=== PATIENT | female | born 1980 | race Caucasian/White ===

== ENCOUNTER → 2022-12-07 | Outpatient (CLI) | payer BC, SELFPAY ==
[2022-12-13 15:57] LABS: HPV APTIMA, High Risk Negative (Negative)
== END | disposition home or self-care (01) ==
LOC: LABSPEC 10:01
PROVIDERS: Visit Provider Obstetrics & Gynecology
DX: Z12.4 Encounter for screening for malignant neoplasm of cervix (principal)
CPT/HCPCS: 87624; 88175; G0145

== ENCOUNTER → 2023-02-22 | Outpatient (CLI) | payer BC, SELFPAY ==
--- NOTE | 2023-02-22 12:21 | BI_ITS ---
MAMMOGRAPHY - BILATERAL SCREENING REASON FOR EXAM: Female, 42 years old. Routine annual screening examination. PERTINENT HISTORY: Aunt with breast cancer. TECHNIQUE: Digital bilateral breast andrade (3D mammographic acquisition) in the CC and MLO projections. 2-D mediolateral oblique (MLO) and craniocaudad (CC) views of both breasts were obtained. CAD: Full Field Digital Mammography with Computer Added Detection was performed. COMPARISON: None. Baseline examination. FINDINGS: Breast Composition: The breasts are extremely dense, which lowers the sensitivity of mammography. There are no dominant masses or suspicious calcifications. No other significant abnormalities are identified. BI/SCRN MAMM (CAD)W/ANDRADE BILAT IMPRESSION: Negative screening mammogram. Yearly followup mammogram recommended. (A) ASSESSMENT CATEGORY: BIRADS Category 1: Negative. A letter regarding these results will be sent to the patient by the facility within 30 days. Approximately 10% of breast cancers are not detected by mammography. A normal mammogram should not delay biopsy of a clinically suspicious abnormality. [id number] Electronically Signed: Nino Narayanan MD at 13:46 EDT ,
== END | disposition home or self-care (01) ==
LOC: OPBI 12:19
PROVIDERS: Referring Provider Obstetrics & Gynecology; Visit Provider Obstetrics & Gynecology
DX: Z12.31 Encounter for screening mammogram for malignant neoplasm of breast (principal)
CPT/HCPCS: 77063; 77067

== ENCOUNTER → 2024-09-11 | Outpatient (CLI) | payer BC, SELFPAY ==
--- NOTE | 2024-09-11 10:54 | BI_ITS ---
MAMMOGRAPHY - BILATERAL SCREENING REASON FOR EXAM: Female, 44 years old. Routine annual screening examination. PERTINENT HISTORY: Aunt with breast cancer. TECHNIQUE: Digital bilateral breast andrade (3D mammographic acquisition) in the CC and MLO projections. 2-D mediolateral oblique (MLO) and craniocaudad (CC) views of both breasts were obtained. CAD: Full Field Digital Mammography with Computer Added Detection was performed. COMPARISON: Comparison is made with prior study dated February 22, 2023. FINDINGS: Breast Composition: The breasts are extremely dense, which lowers the sensitivity of mammography. There are no dominant masses or suspicious calcifications. No other significant abnormalities are identified. There has been no significant change since the prior study. BI/SCRN MAMM (CAD)W/ANDRADE BILAT IMPRESSION: Stable bilateral screening mammogram. Yearly follow-up mammogram recommended. (A) ASSESSMENT CATEGORY: BIRADS Category 1: Negative. A letter regarding these results will be sent to the patient by the facility within 30 days. Approximately 10% of breast cancers are not detected by mammography. A normal mammogram should not delay biopsy of a clinically suspicious abnormality. [id number] Electronically Signed: Nino Narayanan MD at 12:12 EST ,
== END | disposition home or self-care (01) ==
LOC: OPBI 10:53
PROVIDERS: PCP Family Medicine; Referring Provider Family Medicine; Visit Provider Family Medicine
DX: Z12.31 Encounter for screening mammogram for malignant neoplasm of breast (principal); Z80.3 Family history of malignant neoplasm of breast

== ENCOUNTER → 2024-10-25 | Outpatient (CLI) | payer BC, SELFPAY ==
[2024-10-29 23:07] LABS: Chlamydia By Nucleic Acid AMP Negative (Negative); Gonococcus By Nucleic Acid AMP Negative (Negative)
[2024-10-31 11:08] LABS: HPV APTIMA, High Risk Negative (Negative)
== END | disposition home or self-care (01) ==
LOC: LABSPEC 14:55
PROVIDERS: PCP Family Medicine; Referring Provider Advanced Practice Midwife; Visit Provider Advanced Practice Midwife
DX: Z12.4 Encounter for screening for malignant neoplasm of cervix (principal); N93.0 Postcoital and contact bleeding
CPT/HCPCS: 87491; 87591; 87624; 88175; G0145

== ENCOUNTER → 2025-02-15 | Outpatient (CLI) | payer OTHER, SELFPAY | END | disposition home or self-care (01) | LOC: LABSPEC 13:37 | PROVIDERS: PCP Family Medicine | DX: N39.0 Urinary tract infection, site not specified (principal) | CPT/HCPCS: 87077; 87086; 87088; 87186 ==

== ENCOUNTER → 2025-05-15 | Outpatient (CLI) | payer OTHER, SELFPAY ==
--- NOTE | 2025-05-15 11:10 | RAD_ITS ---
PROCEDURE: CHEST PA AND LATERAL 05/15/2025 REASON FOR EXAM: BACK PAIN, CHRONIC TECHNIQUE: Procedure Code: RADCXR Modality: DX Procedure: CHEST PA AND LATERAL COMPARISON: None FINDINGS: Hardware: None Heart: The heart size is normal. Mediastinum: The mediastinal contour is unremarkable. Lungs: The lungs are clear. Bones: The bones are unremarkable. RAD/Chest PA and Lateral IMPRESSION: NO ACUTE FINDINGS. Reading Location: [place] [id number]
== END | disposition home or self-care (01) ==
LOC: MTRAD 11:08
PROVIDERS: PCP Family Medicine; Referring Provider Family Medicine; Visit Provider Family Medicine
DX: M54.9 Dorsalgia, unspecified (principal); G89.29 Other chronic pain
CPT/HCPCS: 71046

== ENCOUNTER 2025-05-25 19:41 | Emergency (ER) | payer OTHER, SELFPAY ==
[2025-05-25 19:41] VITALS: BP 112/71; PULSE 87; RESP 16; TEMP 37.1; O2SAT 98; BMI 21.0
--- NOTE | 2025-05-25 20:18 | CT_ITS ---
PROCEDURE: CT ABDOMEN/PELVIS W IV CONT ONLY 05/25/2025 REASON FOR EXAM: ABD PAIN, DIFFUSE TECHNIQUE: Procedure Code: [id number] Modality: CT Procedure: ABDOMEN/PELVIS W IV CONT ONLY Coronal and Sagittal reconstruction series were provided. CONTRAST: Isovue 370 VOLUME: 75 mL One or more dose reduction techniques were used (e.g., Automated exposure control, adjustment of the mA and/or kV according to patient size, use of iterative reconstruction technique. RADIATION DOSE SUMMARY: DLP: 333.8 mGycm COMPARISON: None. FINDINGS: Lung bases: Clear. Liver: Unremarkable. Gallbladder: Unremarkable. No biliary ductal dilatation. Spleen: Unremarkable. Pancreas: Unremarkable. Adrenals: Unremarkable. Kidneys: Symmetric enhancement. No urolithiasis or hydronephrosis. Several bilateral small simple appearing renal cysts. Bladder: Unremarkable. No wall thickening or inflammatory changes. Reproductive Organs: Prominent left ovarian/adnexal cyst measuring 5.8 x 3.7 cm. Bowel: No evidence for bowel obstruction or active inflammatory process. Appendix is not definitively identified but there are no pericecal inflammatory changes. Moderate stool burden throughout the colon. Mildly prominent fluid-filled mid to distal small bowel loops may represent enteritis. Lymph nodes: No suspicious lymph node enlargement. Vasculature: Normal caliber abdominal aorta and IVC. Peritoneum / Retroperitoneum: No ascites or free air. Bones: No significant abnormality. CT/Abdomen/Pelvis W IV Cont ONLY IMPRESSION: 1. Mildly prominent fluid-filled mid to distal small bowel loops, suggesting en teritis. 2. Left ovarian/adnexal simple attenuating cyst measuring 5.8 x 3.7 cm. Reading Location: [id number]
[2025-05-25] MEDS: 0.9% Normal Saline (1000mL) 1,000 ML 999 ML IV (20:51)
[2025-05-25 21:00] LABS: Hematocrit 36.6 % (37-47); Hemoglobin 11.5 g/dL (12.0-15.0); Immature Granulocytes Count 0.030 X10^3/uL (0.0-0.0); Mean Corp Hgb Conc 31.4 g/dL (32-36); Mean Corpuscular Volume 82.2 fL (81-99); Mean Platelet Vol. 9.2 fl (6.2-12.0); NRBC Flagged by Analyzer 0.2 % (0-5); Platelet Count 275 K/mm3 (150-450); RBC Distribution Width CV 14.2 % (11.6-14.6); RBC Distribution Width SD 42.1 fl (35.1-43.9); Red Blood Count 4.45 M/mm3 (4.2-5.4); White Blood Count 10.9 K/mm3 (4.4-11.0)
--- NOTE | 2025-05-25 21:10 | EX.ED.DYSGE1 ---
HPI History of Present Illness Chief Complaint: Abd Pain Narrative Narrative: Patient is a 45-year-old female with who presents to the emergency department chief complaint of abdominal pain. Patient states that she went to work earlier today and notes that she was not feeling well she states that she got to her office and noted that she had abdominal pain. States that this subsided some and she decided to leave her office and continue to work. She states that the abdominal pain returned and noted that this was significant therefore she came here to be further evaluated. Patient denies any recent sick contacts. Patient denies any previous abdominal surgeries. Patient states that she is ending her cycle at this point time. 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 Home Medications ?Medication ?Instructions ?Recorded ?Last Taken ?Type dicyclomine 20 mg tablet 20 mg PO TID PRN abdominal pain 05/25/25 Unknown Rx #20 tabs ondansetron 4 mg disintegrating 4 mg PO Q6H PRN nausea and 05/25/25 Unknown Rx tablet vomiting #20 tabs Allergy/AdvReac Type Severity Reaction Status Date / Time No Known Allergies Allergy Verified 05/25/25 19:42 Family History Mother Lung cancer Father Brain cancer Aunt Breast cancer Diabetes Surgical History H/O cone biopsy of cervix H/O LEEP Social History current occupational status: employed current occupation: [employer] sexually active: Yes Smoking Status: Never smoker alcohol intake: never substance use type: does not use what type of physical activity do you participate in: other frequency: other duration: other do you feel safe at home: Yes additional social history: 2 adopted children ROS ROS ED ROS Narrative Constitutional: Complains of chills denies any fevers Cardiovascular: Denies chest pain Respiratory: Denies shortness of breath Abdomen: Complains of abdominal pain as noted above denies nausea vomit diarrhea : Denies any urinary symptoms Neurological: Denies numbness, weakness, tingling Musculoskeletal: Denies back pain Skin: Denies any rashes or lesions EXAM Physical Exam Narrative Exam Narrative: General: Patient is lying in bed resting comfortably did not appear to be acute distress Head: Atraumatic, normocephalic Eyes: PERRL bilaterally, EOMI bilaterally, no conjunctival injection noted Neck: Soft, supple, trachea midline Cardiovascular: Regular rate and rhythm no murmurs gallops rubs noted Respiratory: Clear to auscultation bilaterally no rales rhonchi or wheezes noted Abdomen: Soft, nondistended, diffuse tenderness to palpation no rebound or guarding on exam Extremities: +5/5 strength noted in the bilateral upper and lower extremities Neurological: Patient following commands knew that she was at [facility] the year is 2024 Skin: Warm, dry, intact no rashes or lesions noted Const Vital Signs: 05/25/25 19:41 05/25/25 21:59 Temperature 98.8 F 98.1 F Temperature Source Oral Oral Pulse Rate 87 81 Respiratory Rate 16 16 Blood Pressure 112/71 113/77 Blood Pressure Mean 84 89 Pulse Ox 98 100 Oxygen Delivery Method Room Air Room Air MDM MDM MDM Narrative Medical decision making narrative: Patient is a 45-year-old female who presented to the emergency department chief complaint of abdominal pain. On the differential diagnosis includes but not limited to viral gastroenteritis, bowel obstruction, diverticulitis, appendicitis, cholecystitis. Once workup is obtained reviewed she will be reevaluated. Patient be given IV fluids morphine and Zofran. Patient CBC reviewed and showed no evidence of cytosis white blood count of 10.9, hemoglobin 0.5, plate count of 275. Patient sodium was 137, potassium normal 3.7, creatinine was 0.80. Patient's AST and ALT were normal at 17 and less than 5 respectively total bilirubin normal at 0.29. Patient test negative. Patient urinalysis reviewed showed no evidence of infection patient CT ab pelvis IV contrast showed mild prominent fluid-filled mid to distal small bowel loops suggesting enteritis. Left ovarian/adnexal simple attenuating cyst measuring 5.8 x 3.7 cm. Discussed results with the patient and she is feeling better she would like to go home at this point time. She was advised to return with worsening symptoms or concerns. She was advised to follow-up with her doctor. She will given prescriptions for Zofran and Bentyl. She is agreeable to plan all question concerns answered she was discharged home in stable condition. Lab Data Labs: Laboratory Results - last 24 hr 05/25/25 05/25/25 21:10 Unknown WBC 10.9 RBC 4.45 Hgb 11.5 L Hct 36.6 L MCV 82.2 MCH 25.8 L MCHC 31.4 L RDW Std Deviation 42.1 RDW Coeff of Nichelle 14.2 Plt Count 275 MPV 9.2 Immature Gran % (Auto) 0.300 Neut % (Auto) 88.8 H Lymph % (Auto) 6.0 L [place] % (Auto) 3.9 Eos % (Auto) 0.5 Baso % (Auto) 0.5 Absolute Neuts (auto) 9.7 H Absolute Lymphs (auto) 0.65 L Nucleated RBC % 0.2 Sodium 137 Potassium 3.7 Chloride 104 Carbon Dioxide 20.6 L Anion Gap 13 BUN 11 Creatinine 0.80 Estim Creat Clear Calc 81.11 Est GFR (MDRD) Non-Af 92 BUN/Creatinine Ratio 13.8 Glucose 111 H Calcium 9.2 Total Bilirubin 0.29 AST 17 ALT < 5 Alkaline Phosphatase 50 Total Protein 6.9 Albumin 4.5 Globulin 2.5 Albumin/Globulin Ratio 1.8 Lipase 35 Serum , Qual NEGATIVE Urine Color Straw Urine Clarity Clear Urine pH 7.0 Ur Specific [place] 1.015 Urine Protein Negative Urine Glucose (UA) Normal Urine Ketones 5 H Urine Occult Blood Negative Urine Nitrite Negative Urine Bilirubin Negative Urine Urobilinogen Normal Ur Leukocyte Esterase Negative Urine RBC 0-5 SEEN Urine WBC 0-5 SEEN Ur Squamous Epith Cells 0-5 SEEN Urine Bacteria RARE Urine Mucus RARE Radiography Diagnostic Testing: Clinical Impression(s) from Imaging Studies Abdomen/Pelvis CT 05/25/25 20:18 IMPRESSION: 1. Mildly prominent fluid-filled mid to distal small bowel loops, suggesting enteritis. 2. Left ovarian/adnexal simple attenuating cyst measuring 5.8 x 3.7 cm. Reading Location: [facility] Discharge Plan Triage Chief Complaint: Abd Pain ED Provider: Bryan Mosqueda Dx/Rx/DC Orders Clinical Impression: Abdominal pain, Viral gastroenteritis Prescriptions: New ondansetron 4 mg tablet,disintegrating 4 mg PO Q6H PRN (Reason: nausea and vomiting) Qty: 20 0RF dicyclomine 20 mg tablet 20 mg PO TID PRN (Reason: abdominal pain) Qty: 20 0RF Primary Care Provider: Lacie Rosenbaum Referrals: Lacie Rosenbaum MD [Primary Care Provider, Family Practice] Activity Restrictions/Additional Instructions: Your blood work did not show any acute findings here today. Your CT scan showed evidence that you have a viral illness causing your abdominal pain. Use prescriptions as prescribed. Return if worsening symptoms or other concerns. Print Language: Maltese Disposition Disposition: Home, Self Care
[2025-05-25 21:13] LABS: Internal QC Validated? YES +Cl - CLEAR BKGD; Pregnancy, Serum, hCG Quali. NEGATIVE Negative; Record Kit Lot#, Serum Preg. 964736
[2025-05-25 21:21] LABS: Color, Urine Straw (Yellow); Glucose, Dipstick Normal (Normal); Ketone-Dipstick 5 mg/dl (Negative); Leukocyte Esterase-Dipstick Negative /ul (Negative); Nitrite-Dipstick Negative (Negative); Occult Blood-Urine Negative /ul (Negative); Protein-Dipstick Negative (Negative); Specific Gravity, Urine 1.015 (1.002-1.030); Urine Bilirubin Dipstick Negative (Negative)
[2025-05-25 21:29] LABS: Lipase 35 U/L (13-75)
[2025-05-25 21:36] LABS: Mucous, Urine RARE /hpf (<or=2+); Red Blood Cells-Urine 0-5 SEEN /hpf (0-5); Squamous Epithelial Cells - UA 0-5 SEEN /hpf (5-10)
[2025-05-25 21:38] LABS: AST(SGOT) 17 U/L (<=31); Alanine Aminotransfer ALT/SGPT < 5 U/L (<=34); Albumin, Serum 4.5 g/dL (3.5-5.0); Alkaline Phosphatase 50 U/L (35-104); Anion Gap 13 (5-15); BUN 11 mg/dL (4-19); BUN/Creat Ratio 13.8 RATIO (10-20); Calcium,Total 9.2 mg/dL (7.6-11.0); Carbon Dioxide 20.6 mmol/L (21.0-32.0); Chloride 104 mmol/L (98-108); Estimated Creatinine Clearance 81.11 ml/min (50-250); Globulin 2.5 g/dL (2.2-4.2); Glucose 111 mg/dL (70-99); Potassium 3.7 mmol/L (3.3-5.1)
[2025-05-25 21:59] VITALS: BP 113/77; PULSE 81; RESP 16; TEMP 36.7; O2SAT 100
[2025-05-25 22:23] VITALS: BP 122/82; PULSE 91; RESP 16; TEMP 36.7; O2SAT 100
== END 2025-05-25 22:28 | disposition home or self-care (01) ==
PROVIDERS: Emergency Provider Emergency Medicine; PCP Family Medicine; Visit Provider Emergency Medicine
DX: R10.9 Unspecified abdominal pain (principal); A08.4 Viral intestinal infection, unspecified; N83.292 Other ovarian cyst, left side
CPT/HCPCS: 74177; 80053; 81001; 83690; 84703; 85025; 96374; 96375; 99284; Q9967; J2405